=== PATIENT | male | born 1990 | race Caucasian/White ===

== ENCOUNTER 2023-12-13 17:44 | Emergency (ER) | payer BC ==
[~2023-12-13] VITALS: Ht 182.9 cm; Wt 87.1 kg
[2023-12-13 18:21] VITALS: BP 139/81; TEMP 98.6; O2SAT 98
== END 2023-12-13 22:09 | disposition home or self-care (01) ==
LOC: ER 18:01
DX: R51.9 Headache, unspecified (principal); M79.645 Pain in left finger(s); V43.52XA Car driver injured in collision with other type car in traffic accident, initial encounter; Y93.89 Activity, other specified; Y92.410 Unspecified street and highway as the place of occurrence of the external cause; Y99.8 Other external cause status
CPT/HCPCS: 70450-TC; 73130-TC